=== PATIENT | male | born 1955 | race Caucasian/White ===

== ENCOUNTER → 2016-06-05 | Outpatient (CLI) | payer OTHER | LOC: FIMAGING 14:54 | DX: Z09 Encounter for follow-up examination after completed treatment for conditions other than malignant neoplasm (principal); Z98.1 Arthrodesis status ==

== ENCOUNTER 2016-08-27 10:02 | Emergency (ER) | payer OTHER ==
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
[2016-08-27 10:20] VITALS: PULSE 75; RESP 18
--- NOTE | 2016-08-27 10:22 | CPEKG ---
Heart Rate: 71 RR Interval: 845 P-R Interval: 152 QRSD Interval: 126 QT Interval: 400 QTC Interval: 435 P Hastings: 19 QRS Hastings: -53 T Wave Hastings: 21 EKG Severity - ABNORMAL ECG - EKG Impression: SINUS RHYTHM EKG Impression: RBBB AND LAFB Electronically Signed By: Irvin Chaudhari 27-Aug-2016 10:23:19
[2016-08-27 10:42] VITALS: BP 122/80; TEMP 97.9; O2SAT 93
== END 2016-08-27 10:40 | disposition home or self-care (01) ==
LOC: CED 10:02
DX: S50.12XA Contusion of left forearm, initial encounter (principal); J45.909 Unspecified asthma, uncomplicated; Z79.82 Long term (current) use of aspirin; Z87.891 Personal history of nicotine dependence; V89.2XXA Person injured in unspecified motor-vehicle accident, traffic, initial encounter; Y92.410 Unspecified street and highway as the place of occurrence of the external cause
CPT/HCPCS: 71020-PO

== ENCOUNTER → 2016-09-02 | Outpatient (CLI) | payer OTHER | LOC: FIMAGING 17:07 | PROVIDERS: ATTEND Physician Assistant | DX: Z47.89 Encounter for other orthopedic aftercare (principal); Z98.1 Arthrodesis status ==

== ENCOUNTER → 2016-12-11 | Outpatient (CLI) | payer OTHER | LOC: FIMAGING 14:34 | PROVIDERS: ATTEND Physician Assistant | DX: Z09 Encounter for follow-up examination after completed treatment for conditions other than malignant neoplasm (principal); Z98.1 Arthrodesis status ==

== ENCOUNTER → 2017-05-30 | Outpatient (CLI) | payer OTHER | LOC: CIMAGING 13:07 | PROVIDERS: ATTEND Internal Medicine | DX: S62.317A Displaced fracture of base of fifth metacarpal bone, left hand, initial encounter for closed fracture (principal); M18.12 Unilateral primary osteoarthritis of first carpometacarpal joint, left hand | CPT/HCPCS: 73130-PO ==

== ENCOUNTER → 2017-11-12 | Outpatient (CLI) | payer OTHER | LOC: FIMAGING 13:12 | PROVIDERS: ATTEND Physician Assistant | DX: Z09 Encounter for follow-up examination after completed treatment for conditions other than malignant neoplasm (principal); Z98.1 Arthrodesis status ==

== ENCOUNTER → 2017-11-24 | Outpatient (CLI) | payer OTHER | LOC: FIMAGING 17:32 | PROVIDERS: ATTEND Physician Assistant | DX: Z98.1 Arthrodesis status (principal); M48.07 Spinal stenosis, lumbosacral region; M53.86 Other specified dorsopathies, lumbar region ==

== ENCOUNTER 2018-04-10 07:15 | Inpatient (IN) | payer OTHER ==
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
--- NOTE | 2018-06-08 06:45 | PDHPUP ---
History & Physical Update H&P update statement: This history and physical update is based on an assessment of the patient which was completed after admission or registration (within 24 hours), but prior to the surgery/procedure. H&P update: H&P reviewed & patient examined, no change in patient's condition since H&P completed
[2018-06-08] MEDS ORDERED: THROMBIN (BOVINE) 20,000 UNIT VIAL TP ONE (08:53)
[2018-06-08] MEDS ORDERED: BUPIVACAINE 0.25% 30 ML SDV ONE (08:53)
[2018-06-08] MEDS ORDERED: EPINEPHrine 1 MG/ML INJ ONE (08:54)
[2018-06-08] MEDS ORDERED: BACITRACIN 50,000 UNITS/10 ML SYR IRR ONE (08:54)
[2018-06-08] MEDS ORDERED: ACETAMINOPHEN 500 MG TAB PO ONE ×2 (09:14)
[2018-06-08] MEDS ORDERED: GABAPENTIN 300 MG CAP PO ONE ×2 (09:14)
[2018-06-08] MEDS ORDERED: ceFAZolin 2 GM/DEXTROSE 100 ML IV ONE ×2 (09:14)
[2018-06-08] MEDS ORDERED: LR 1,000 ML IV ONE (09:15)
[2018-06-08] MEDS ORDERED: HYDROCODONE/APAP 5/325 TAB PO PRN (10:11)
[2018-06-08] MEDS ORDERED: LACTULOSE 20 GM/30 ML UDCUP PO PRN (10:11)
[2018-06-08] MEDS ORDERED: HYDROmorphONE/DILAUDID 1 MG/ML INJ IVP PRN (10:11)
[2018-06-08] MEDS ORDERED: BISACODYL 10 MG SUPP PR PRN (10:11)
[2018-06-08] MEDS ORDERED: ONDANSETRON 4 MG/2 ML VIAL IVP PRN (10:11)
[2018-06-08] MEDS ORDERED: ONDANSETRON DISINTEGRATING 4 MG TAB PO PRN (10:11)
[2018-06-08] MEDS ORDERED: NALOXONE HCL 0.4 MG/ML INJ IVP PRN (10:11)
[2018-06-08] MEDS ORDERED: diphenhydrAMINE 25 MG CAP PO PRN (10:11)
[2018-06-08] MEDS ORDERED: MAGNESIUM HYDROXIDE 30 ML UDCUP PO PRN (10:11)
[2018-06-08] MEDS ORDERED: HYDROmorphONE/DILAUDID 6 MG/30 ML PCA IV PRN (10:11)
[2018-06-08] MEDS ORDERED: PROPOFOL/EMULSION 500 MG/50 ML BOTTLE IV ONE ×3 (10:13→14:48)
[2018-06-08] MEDS ORDERED: NS 1,000 ML IV SCH (10:15)
[2018-06-08] MEDS ORDERED: fentaNYL 250 MCG/5 ML INJ ONE (10:16)
--- NOTE | 2018-06-08 10:38 | PDANEPAE ---
ANE History of Present Illness 62 year old male for removal of hardware and L3-L5 TLIf. History of asthma. ANE Past Medical History - Cardiovascular History Hx Hypertension: No Hx Arrhythmias: No Hx Chest Pain: No Hx Coronary Artery / Peripheral Vascular Disease: No Hx CHF / Valvular Disease: No Hx Palpitations: No - Pulmonary History Hx COPD: No Hx Asthma/Reactive Airway Disease: Yes Hx Recent Upper Respiratory Infection: No Hx Oxygen in Use at Home: No Hx Sleep Apnea: No Sleep Apnea Screening Result - Last Documented: Negative Pulmonary History Comment: asthma uses advair will bring to hospital - Neurologic History Hx Cerebrovascular Accident: No Hx Seizures: No Hx Dementia: No Neurologic History Comment: numbness and tingling to toes. chronic nerve pain in back, right leg down to feet - Endocrine History Hx Diabetes: No Endocrine History Comment: hypothyroidism - Renal History Hx Renal Disorders: No - Liver History Hx Hepatic Disorders: No - Neurological & Psychiatric Hx Hx Neurological and Psychiatric Disorders: No - Cancer History Hx Cancer: No - Congenital Disorder History Hx Congenital Disorders: Yes Congenital History Comment: scoliosis - GI History Hx Gastrointestinal Disorders: No Gastrointestinal History Comment: colonscopy 2014 - Other Health History Other Health History: ECZEMA - ALLERGIC. bruises easily, especially arms - Chronic Pain History Chronic Pain: Yes (low back, hips, right leg down to feet) - Surgical History Prior Surgeries: L5/S1 fusion, 10/2015. tonsillectomy as child ANE Review of Systems Review of systems is: negative Review of Systems: - Exercise capacity METS (RN): 4 METS ANE Patient History - Allergies Allergies/Adverse Reactions: No Known Allergies Allergy (Verified 03/29/18 17:05) - Home Medications Home Medications: Fluticasone/Salmeter 250/50Mcg [Advair 250/50 (*)] 1 puffs IH DAILY 10/08/15 [ Last Taken 06/08/18 06:30] Latanoprost 0.005% [Xalatan 0.005% (*)] 1 drops EACHEYE HS 10/08/15 [Last Taken 06/08/18 06:30] Levothyroxine [Synthroid 137 mcg (*)] 137 mcg PO DAILY06 10/08/15 [Last Taken 06:30] Aspirin [Aspirin 81mg (*)] 81 mg PO DAILY 08/27/16 [Last Taken 06/01/18] Dorzolamide/Timolol [Cosopt (*)] 1 drop EACHEYE BID 03/22/18 [Last Taken 06:30] Herbals/Supplements -Info Only 1 ea PO DAILY 03/22/18 [Last Taken 06/01/18] Naproxen Sodium [Aleve 220 MG (*)] 220 mg PO BID PRN 03/22/18 [Last Taken ] - NPO status NPO Since - Liquids (Date): 06/08/18 NPO Since - Liquids (Time): 06:30 NPO Since - Solids (Date): 06/07/18 NPO Since - Solids (Time): 20:00 - Smoking Hx Smoking Status: Former smoker - Family Anes Hx Family Hx Anesthesia Complications: none ANE Labs/Vital Signs - Vital Signs Blood Pressure: 145/89 Heart Rate: 67 Respiratory Rate: 11 O2 Sat (%): 96 Height: 170.18 cm Weight: 79.379 kg ANE Physical Exam - Airway Neck exam: FROM Mallampati Score: Class 2 Mouth exam: normal dental/mouth exam - Pulmonary Pulmonary: no respiratory distress - Cardiovascular Cardiovascular: regular rate and rhythym - ASA Status ASA Status: II ANE Anesthesia Plan Anesthesia Plan: general endotracheal anesthesia Lines/Monitors: arterial line
--- NOTE | 2018-06-08 12:24 | PDMN ---
Medical Necessity Medical necessity: MCG S820 lumbar fusion: [facility] INPT only 3 days: op: L3/4, L4/5 TLIF
[2018-06-08] MEDS ORDERED: ONDANSETRON 4 MG/2 ML VIAL ONE (12:30)
[2018-06-08] MEDS ORDERED: PHENYLEPHRINE HCL 100 MCG/ML SYR ONE (12:30)
[2018-06-08] MEDS ORDERED: ROCURONIUM 50 MG/5 ML VIAL ONE (12:30)
[2018-06-08] MEDS ORDERED: DEXAMETHASONE 4 MG/ML VIAL ONE (12:30)
[2018-06-08] MEDS ORDERED: LIDOCAINE 2% 5 ML SDV ONE (12:30)
[2018-06-08] MEDS ORDERED: LR 500 ML IV PRN (13:16)
[2018-06-08] MEDS ORDERED: ALBUTEROL 3 ML DEYVIAL IH PRN (13:16)
[2018-06-08] MEDS ORDERED: fentaNYL 100 MCG/2 ML INJ IVP PRN (13:16)
[2018-06-08] MEDS ORDERED: LABETALOL HCL 5 MG/ML 20 ML MDV IVP PRN (13:16)
[2018-06-08] MEDS ORDERED: PHENYLEPHRINE HCL 100 MCG/ML SYR IVP PRN (13:16)
[2018-06-08] MEDS ORDERED: DIAZEPAM 5 MG/ML 1 ML SYR IVP PRN (13:16)
[2018-06-08] MEDS ORDERED: PROMETHAZINE HCL 25 MG/ML INJ IVP PRN (13:16)
[2018-06-08] MEDS ORDERED: MEPERIDINE 25 MG/0.5 ML AMP IVP PRN (13:16)
[2018-06-08] MEDS ORDERED: ALBUMIN 5% 250 ML BOTTLE IV ONE (14:38)
--- NOTE | 2018-06-08 16:14 | POSTANESTH ---
Post Anesthetic Evaluation Cardiovascular Status: Normal, Stable Respiratory Status: Normal, Stable Level of Consciousness/Mental Status: Mildly Sleepy, Arousable Pain Control: Adequate, Prn Tx Ordered Nausea/Vomiting Control: Adequate, Prn Tx Ordered Complications Possibly Related to Anesthesia: None Noted
--- NOTE | 2018-06-08 16:15 | POSTOPPROG ---
Post Op Note Date of Operation: 06/08/18 Surgeon: Darvin Grant Pecan Cleaner: ALBER Simons Anesthesiologist: MD Laly Anesthesia: GET(General Endotracheal), Local (Specify) Pre-op Diagnosis: lumbar stenosis L3/4 and L4/5, prior L5/S1 fusion Post-op Diagnosis: lumbar stenosis L3/4 and L4/5 Indication: stenosis, RLE pain. Procedure: TLIF L3/4 and L4/5 with PSF L3-S1 Findings: see op report Inf/Abcess present in the surg proc area at time of surgery?: No Depth: Deep Incisional (Fascial) EBL: 100-500 Total fluids administered: see anesthesia record Complications: none Bowel Protocol: Yes Clean Closure Performed: Yes Drains: Walter Mann
--- NOTE | 2018-06-08 16:18 | SOAPPROG ---
SOAP Progress Note Assessment/Plan: Post Op Visit: S: Awake and alert. NAD. Pt with expected lower back pain O: AFVSS/PERRLA/EOMI no droop CN 2-12 grossly intact +lt touch 5/5 BUE/BLE = CDI ADAN in place A/P: 62 yo male that is s/p TLIF L3/4 and L4/5 with PSF L3-L5 -orders in place -call with any questions or concerns -pt seen by Dr Grant as well -PT/OT in am -brace when out of bed -take medications as directed 06/08/18 16:17 Objective: Vital Signs Temp Pulse Resp BP Pulse Ox 36.9 C 67 11 L 145/89 H 96 06/08/18 10:10 06/08/18 10:38 06/08/18 10:38 06/08/18 10:38 06/08/18 10:38 ICD10 Worksheet Patient Problems: Problems Problem Status Onset Lumbar radicular pain Acute Lumbar stenosis Acute Lumbar degenerative disc disease Acute - ICD10 Problem Qualifiers (1) Lumbar stenosis (2) Lumbar radicular pain
[2018-06-08] MEDS: ceFAZolin 2 GM/DEXTROSE 100 ML IV SCH (16:27)
[2018-06-08] MEDS ORDERED: oxyCODONE IR 5 MG TAB ONE (16:47)
[2018-06-08] MEDS ORDERED: METHOCARBAMOL 750 MG TAB ONE (16:47)
[2018-06-08] MEDS: oxyCODONE IR 5 MG TAB PO PRN ×2 (16:50→20:45)
[2018-06-08] MEDS: METHOCARBAMOL 750 MG TAB PO PRN ×2 (16:50→22:53)
--- NOTE | 2018-06-08 18:21 | GOP ---
[f rep st] OPERATIVE REPORT DATE OF OPERATION: 06/08/2018 SURGEON: Kee Grant MD NEUROSURGEON: Kee Grant MD INSPECTOR OUTSIDE STEAM DISTRIBUTION: BRAYAN Rodriguez. PREOPERATIVE DIAGNOSIS: Adjacent segment of the above a prior L5-S1 fusion, severe spinal stenosis L 3-4, moderate spinal stenosis L4-5, bilateral lumbosacral radiculopathy, degenerative tilt of L3 on L 4, L4 on L5. POSTOPERATIVE DIAGNOSIS: Adjacent segment of the above a prior L5-S1 fusion, severe spinal stenosis L3-4, moderate spinal stenosis L4-5, bilateral lumbosacral radiculopathy, degenerative tilt of L3 on L4, L4 on L5. PROCEDURE PERFORMED: Removal of posterior nonsegmental instrumentation at L5-S1, posterior lateral a nd intervertebral arthrodesis L3-4, L4-5 ([id number], [id number], placement of biomechanical intervertebral dev ice L3-4, L4-5 ([id number] x2), posterior segmental hardware at L3, L4, L5 ([id number]), spinal stereotactic, m icroscope, same incision bone graft harvest. FINDINGS: ESTIMATED BLOOD LOSS: 400 cc. INDICATIONS: The patient has a history of a previous successful L5-S1 fusion that I performed severa l years earlier with good clinical result who developed increasingly severe bilateral lumbosacral rad iculopathy. He had a lumbarized S1 segment based on the most recent numbering scheme, and therefore, it was considered used at the lumbosacral junction, although some may have numbered the spine differ ently and considered this lower segment that was previously fused L4-5. Nevertheless, he had develop ed adjacent segment disease with stenosis at the levels above. He had foraminal stenosis immediately above at the segment above the prior fusion and severe stenosis 2 segments up, and I felt that he kim d symptoms coming from both locations. I suggested a 2-level adjacent segment surgery solve these pr oblems and the risk of nerve injury and spinal fluid leak, continued symptoms, adjacent segment disea se, the possible need for future surgery, pseudarthrosis was all discussed. He knew that he may requ william additional surgery in the future. He knew there was a chance that symptoms would persist despite this surgery. He understood there was risk of infection. He wanted to proceed despite these risks, and also knew there were risks of hardware failure, malposition, and malfunction. DESCRIPTION OF PROCEDURE: The patient was taken to the operating room, placed in supine position. G eneral anesthesia was begun. He was flipped prone onto the Walter table. Care was taken to pad all points of contact. His back was sterilely prepped and draped in the usual fashion. A localizing x- ray was taken. We opened the prior incision, extended it rostrally about 3 cm. The subcutaneous tissue was dissecte d using the plasma blade down through the fascia and a subperiosteal dissection was made down the inf erior L2 lamina. The L3, 4, and 5 lamina were exposed. The prior posterior-lateral hardware at L5-S 1 was exposed and it was then successfully removed. There was no difficulty removing it. The screws were all tight. There was solid posterolateral bone formation and a solid bony arthrodesis at the p rior operative site. We denuded the bilateral hypertrophic L3-4,L4-5 facet joints, the 2 joints that were going to be fuse d above. We preserved the L2-3 facet joint at the rostral end of our construct. We performed an O-a rm spin and using frame of Stealth stereotaxy, we placed pedicle screws bilaterally at L3, L4, L5, an d S1. The screws all stimulated at acceptable levels. We used 5.5 mm screws at L3 because the pedic les were smaller. The screws all stimulated at 20 milliamps. An O-arm spin was made. The screws we re all in excellent position. None of them had to be adjusted. We then took 90 mm desean, increased th e lordosis on the desean, and then placed down over the tulips. We then distracted on the right side mu ch more than the left, most of the kink was on the right side, and got very good straightening of the spine from L3-L5. We then final tightened the cap screws according to company specification, and th en carefully removed all the soft tissue from the bone at L3- 4, 4-5. We harvested the L4 spinous pr ocess for autologous grafting purposes. We harvested the inferior L4 spinous process for autologous grafting purposes. We then introduced the operating microscope and drilled bilateral L3-4, L4-5 laminectomies. We perfo rmed right L3-4, L4-5 facetectomies. There was severe stenosis, it was worse at C3-4, than L4-5, but indeed, there was evidence of stenosis worse on the right at L4-5 than the left. After bilateral de compressions were performed, we then swept the L5 nerve root medially from the right side and via the right side, removed the L4-5 disk, and the cartilaginous endplates. We roughened the subchondral marcelina ne to create arthrodesis at that segment. We went to L3-4, also on the right side, swept the L4 nerv e root medially, removed the disk and the cartilaginous endplates and roughened the subchondral bone to create arthrodesis there. We then sized each space. We took bone autograft and then BMP, and placed that into the disk space, followed by two 7 x 28 mm devices, 1 in each interspace. They were inserted and expanded under fluor oscopic guidance and I was happy with the positioning of the devices. We then decorticated all remai cynthia bone posterolaterally bilaterally to create arthrodesis and placed bone autograft and BMP supervisor border department olaterally bilaterally to enhance arthrodesis. We then placed a subfascial drain, and then closed th e incision in multiple layers using Vicryl sutures. A running PDS was placed in the skin itself. Th e patient was reversed from anesthesia, extubated, and transferred to recovery room in stable conditi on. There were no complications. COMPLICATIONS: None. HARDWARE: Hardware removed was [employer] Solera 475 system. Hardware places was Solera 5.5 mm system manufactured by [employer]. We used a 90 mm desean on each side . We used two 7 x 28 mm Elevate cages, and we used small bone morphogenic protein. /[id number]/MODL
[2018-06-08] MEDS: ACETAMINOPHEN 500 MG TAB PO SCH (18:35)
[2018-06-08] MEDS: GABAPENTIN 300 MG CAP PO SCH ×2 (18:36→22:53)
[2018-06-08] MEDS: SENNOSIDES/DOCUSATE SODIUM TAB PO SCH (20:45)
[2018-06-08] MEDS: FAMOTIDINE 20 MG TAB PO SCH (20:45)
[2018-06-08] MEDS: LATANOPROST OPTH EACHEYE SCH (20:45)
[2018-06-08] MEDS: DORZOLAMIDE EACHEYE SCH (20:46)
[2018-06-08] MEDS: TIMOLOL EACHEYE SCH (20:46)
[2018-06-09] MEDS: ACETAMINOPHEN 500 MG TAB PO SCH ×3 (01:08→17:42)
[2018-06-09] MEDS: ceFAZolin 2 GM/DEXTROSE 100 ML IV SCH (01:08)
[2018-06-09] MEDS: LEVOTHYROXINE 137 MCG TAB PO SCH (05:39)
[2018-06-09] MEDS: GABAPENTIN 300 MG CAP PO SCH ×3 (05:39→21:56)
[2018-06-09] MEDS: oxyCODONE IR 5 MG TAB PO PRN ×4 (05:39→20:06)
[2018-06-09 05:54] LABS: PLATELET COUNT 197 10^3/uL (150-400)
--- NOTE | 2018-06-09 08:22 | SOAPPROG ---
[facility] Progress Note Assessment/Plan: Assessment: POD #1: 62 yo male that is s/p TLIF L3/4 and L4/5 with PSF L3-L5 Doing well. Plan: PT/OT today Continue ADAN drain Lumbar xrays today encourage salty diet. Na 130 this AM Follow Na 06/09/18 08:19 06/09/18 08:22 Subjective: Lying in bed, pain controlled. State his toes no longer tingle Denies new issues. Objective: Vital Signs Temp Pulse Resp BP Pulse Ox 36.8 C 75 14 108/66 98 06/09/18 08:00 06/09/18 08:00 06/09/18 08:00 06/09/18 08:00 06/09/18 08:00 Laboratory Results 06/09/18 05:35 06/09/18 05:35 06/08/18 06/09/18 06/10/18 05:59 05:59 05:59 Intake Total 1920 Output Total 1325 215 Balance 595 -215 Neuro: WEINBERG, Sens +LT follows commands A+0x4 Dressing: CDI ADAN: 90 ml this AM ICD10 Worksheet Patient Problems: Problems Problem Status Onset Lumbar radicular pain Acute Lumbar stenosis Acute Lumbar degenerative disc disease Acute
[2018-06-09] MEDS: POLYETHYLENE GLYCOL 3350 17 GM PKT PO PRN (08:23)
[2018-06-09] MEDS: SENNOSIDES/DOCUSATE SODIUM TAB PO SCH ×2 (08:23→20:06)
[2018-06-09] MEDS: METHOCARBAMOL 750 MG TAB PO PRN ×3 (08:23→20:06)
[2018-06-09] MEDS: FAMOTIDINE 20 MG TAB PO SCH ×2 (08:24→20:06)
[2018-06-09] MEDS: TIMOLOL EACHEYE SCH ×2 (08:25→20:06)
[2018-06-09] MEDS: DORZOLAMIDE EACHEYE SCH ×2 (08:25→20:06)
[2018-06-09] MEDS: SALMETEROL IH SCH (08:35)
[2018-06-09] MEDS: FLUTICASONE IH SCH (08:35)
--- NOTE | 2018-06-09 11:51 | ASMTCMCOM ---
CM Note CM Note Notes: Pt had planned spinal surgery, resides with spouse. PT rec home/outpatient. Anticipate pt will d/c when medically stable, no CM d/c needs identified. CM available for changes/needs. Date Signed: 06/09/2018 11:50 AM Electronically Signed By:GARRISON Gonzalez
[2018-06-09] MEDS: LATANOPROST OPTH EACHEYE SCH (20:06)
[2018-06-10] MEDS: ACETAMINOPHEN 500 MG TAB PO SCH ×2 (02:08→11:16)
[2018-06-10] MEDS: GABAPENTIN 300 MG CAP PO SCH (05:39)
[2018-06-10] MEDS: LEVOTHYROXINE 137 MCG TAB PO SCH (05:39)
[2018-06-10 07:57] VITALS: BP 132/84
[2018-06-10] MEDS: FAMOTIDINE 20 MG TAB PO SCH (08:26)
[2018-06-10] MEDS: METHOCARBAMOL 750 MG TAB PO PRN ×2 (08:55→15:00)
[2018-06-10] MEDS: SENNOSIDES/DOCUSATE SODIUM TAB PO SCH (08:55)
[2018-06-10] MEDS: oxyCODONE IR 5 MG TAB PO PRN ×2 (08:55→14:59)
[2018-06-10] MEDS: POLYETHYLENE GLYCOL 3350 17 GM PKT PO PRN (08:56)
[2018-06-10] MEDS: FLUTICASONE IH SCH (09:04)
[2018-06-10] MEDS: SALMETEROL IH SCH (09:04)
--- NOTE | 2018-06-10 10:46 | SOAPPROG ---
SO[facility] Progress Note Assessment/Plan: Assessment: POD #2: 62 yo male that is s/p TLIF L3/4 and L4/5 with PSF L3-L5 Doing okay. Not feeling well this AM. Na 130->132 today Plan: pt does not feel ready to DC home yet due to nausea and pain. Continue Bowel protocol encourage ambulation with assistance PT/OT today DC ADAN drain encourage salty diet. Na 132. Pain mgmt. advance diet as tolerated 06/10/18 10:45 06/10/18 10:46 Subjective: Lying in bed, feeling a bit nauseated and didn't eat breakfast. Has not had BM but is passing some gas Denies new leg issues. Objective: Vital Signs Temp Pulse Resp BP Pulse Ox 37.2 C 88 18 132/84 H 92 06/10/18 07:55 06/10/18 07:55 06/10/18 07:55 06/10/18 07:55 06/10/18 07:55 Laboratory Results 06/09/18 05:35 06/10/18 04:43 06/09/18 06/10/18 06/11/18 05:59 05:59 05:59 Intake Total 1920 1100 Output Total 1325 760 80 Balance 595 340 -80 Post op xrays show good position of hardware Neuro: WEINBERG, sens +LT ambulatory 5/5 bilateral LE Dressing: CDI ADAN: 80 ml -will DC today per Dr. Grant ICD10 Worksheet Patient Problems: Problems Problem Status Onset Lumbar radicular pain Acute Lumbar stenosis Acute Lumbar degenerative disc disease Acute
[2018-06-10] MEDS: TIMOLOL EACHEYE SCH (11:14)
[2018-06-10] MEDS: DORZOLAMIDE EACHEYE SCH (11:14)
[2018-06-11] MEDS ORDERED: ENOXAPARIN 40 MG/0.4 ML SYR SC SCH (09:00)
== END 2018-06-10 15:06 | disposition home or self-care (01) | DRG 460 ==
LOC: F3N 06-08 08:31
PROVIDERS: ADMIT Neurological Surgery; ATTEND Neurological Surgery
DX: M51.16 Intervertebral disc disorders with radiculopathy, lumbar region (principal); M48.061 Spinal stenosis, lumbar region without neurogenic claudication; Z98.1 Arthrodesis status
CPT/HCPCS: 97161-GP; 97165-GO; 97535-GO; C1713; J0171; J0690; J1100; J2370; J2405; J2704; J3010; P9041

== ENCOUNTER → 2018-07-29 | Outpatient (CLI) | payer OTHER | LOC: FIMAGING 13:50 | PROVIDERS: ATTEND Physician Assistant | DX: Z98.1 Arthrodesis status (principal) ==